=== PATIENT | female | born 1990 | race Hispanic/Latino ===

== ENCOUNTER 2018-03-31 18:46 | Emergency (ER) | payer OTHER, SELFPAY ==
--- NOTE | 2018-03-31 20:02 | EDPHYS ---
Physician Documentation [facility] Name: Allie Naik Age: 27 yrs Sex: Female : 1990 Arrival Date: 03/31/2018 Time: 18:49 Bed 2 Private MD: ED Physician Gilles Munoz HPI: 03/31 21:29 This 27 yrs old Female presents to ER via Ambulatory with complaints of snw Abscess. 21:29 Description: raised, swollen, bleeding easily. Onset: The symptoms/episode snw began/occurred gradually, 2 month(s) ago, and became persistent. Possible cause(s): unknown. Modifying factors: the symptoms are alleviated by nothing, the symptoms are aggravated by squeezing the lesion and expressing the contents. Severity of symptoms: At their worst the symptoms were mild. The patient has not experienced similar symptoms in the past. The patient has not recently seen a physician. 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 - Social history:: Smoking status: Patient/guardian denies using tobacco. - Ebola Screening: : Patient denies travel to an Ebola-affected area in the 21 days before illness onset. ROS: 21:29 Constitutional: Negative for fever, chills, and weight loss, Eyes: Negative for injury, snw pain, redness, and discharge, ENT: Negative for injury, pain, and discharge, Neck: Negative for injury, pain, and swelling, Cardiovascular: Negative for chest pain, palpitations, and edema, Respiratory: Negative for shortness of breath, cough, wheezing, and pleuritic chest pain, Abdomen/GI: Negative for abdominal pain, nausea, vomiting, diarrhea, and constipation, Back: Negative for injury and pain, : Negative for injury, bleeding, discharge, and swelling, MS/Extremity: Negative for injury and deformity, Neuro: Negative for headache, weakness, numbness, tingling, and seizure, Psych: Negative for depression, anxiety, suicide ideation, homicidal ideation, and hallucinations. 21:29 Skin: Positive for lesions, of the left ring finger medially. Exam: 21:29 Constitutional: This is a well developed, well nourished patient who is awake, alert, snw and in no acute distress. Head/Face: Normocephalic, atraumatic. Eyes: Pupils equal round and reactive to light, extra-ocular motions intact. Lids and lashes normal. Conjunctiva and sclera are non-icteric and not injected. Cornea within normal limits. Periorbital areas with no swelling, redness, or edema. ENT: Nares patent. No nasal discharge, no septal abnormalities noted. Tympanic membranes are normal and external auditory canals are clear. Oropharynx with no redness, swelling, or masses, exudates, or evidence of obstruction, uvula midline. Mucous membranes moist. Neck: Trachea midline, no thyromegaly or masses palpated, and no cervical lymphadenopathy. Supple, full range of motion without nuchal rigidity, or vertebral point tenderness. No Meningismus. Chest/axilla: Normal chest wall appearance and motion. Nontender with no deformity. No lesions are appreciated. Cardiovascular: Regular rate and rhythm with a normal S1 and S2. No gallops, murmurs, or rubs. Normal PMI, no JVD. No pulse deficits. Respiratory: Lungs have equal breath sounds bilaterally, clear to auscultation and percussion. No rales, rhonchi or wheezes noted. No increased work of breathing, no retractions or nasal flaring. Abdomen/GI: Soft, non-tender, with normal bowel sounds. No distension or tympany. No guarding or rebound. No evidence of tenderness throughout. Back: No spinal tenderness. No costovertebral tenderness. Full range of motion. MS/ Extremity: Pulses equal, no cyanosis. Neurovascular intact. Full, normal range of motion. Neuro: Awake and alert, GCS 15, oriented to person, place, time, and situation. Cranial nerves II-XII grossly intact. Motor strength 5/5 in all extremities. Sensory grossly intact. Cerebellar exam normal. Normal gait. Psych: Awake, alert, with orientation to person, place and time. Behavior, mood, and affect are within normal limits. 21:29 Skin: Appearance: normal except for affected area, lesion(s), noted, and can be described as pyogenic granuloma - left ring finger medially. Vital Signs: 18:57 BP 129 / 90; Pulse 95; Resp 20; Temp 97.2(TE); Pulse Ox 98% on R/A; Weight 81.65 kg aj1 (R); Height 5 ft. 6 in. (167.64 cm) (R); Pain 0/10; 18:57 Body Mass Index 29.05 (81.65 kg, 167.64 cm) aj1 MDM: 19:43 Patient medically screened. snw 21:32 Data reviewed: vital signs, nurses notes. Data interpreted: Pulse oximetry: on room air snw is 98 %. Counseling: I had a detailed discussion with the patient and/or guardian regarding: the historical points, exam findings, and any diagnostic results supporting the discharge/admit diagnosis, the need for outpatient follow up, to return to the emergency department if symptoms worsen or persist or if there are any questions or concerns that arise at home. Special discussion: Based on the history and exam findings, there is no indication for further emergent testing or inpatient evaluation. I discussed with the patient/guardian the need to see the hand specialist for further evaluation of the symptoms. I discussed with the patient/guardian the need to see the primary care provider for further evaluation of the symptoms. 03/31 19:37 Order name: Urine Dipstick--Ancillary (enter results); Complete Time: 20:21 rg2 03/31 19:37 Order name: Urine --Ancillary (enter results); Complete Time: 20:21 rg2 Administered Medications: No medications were administered Disposition: 21:34 Co-signature as Attending Physician, Gilles Munoz MD I agree with the assessment and tw4 plan of care. Disposition: 03/31/18 20:02 Discharged to Home. Impression: Pyogenic granuloma. - Condition is Stable. - Discharge Instructions: Wound Care. - Medication Reconciliation Form, Thank You Letter, Antibiotic Education, Prescription Opioid Use, Work release form form. - Follow up: Private Physician; When: 2 - 3 days; Reason: Recheck today's complaints, Continuance of care, Re-evaluation by your physician. Signatures: Dispatcher [employer] Iliana Howard RN RN aj1 Ramona Diana FNP-C ELECTRONIC SCANNER OPERATOR-Jessica Saxena RN RN ak1 Gilles Munoz MD MD tw4 Corrections: (The following items were deleted from the chart) 20:40 20:02 03/31/2018 20:02 Discharged to Home. Impression: Pyogenic granuloma. Condition is ak1 Stable. Forms are Medication Reconciliation Form, Thank You Letter, Antibiotic Education, Prescription Opioid Use. Follow up: Private Physician; When: 2 - 3 days; Reason: Recheck today's complaints, Continuance of care, Re-evaluation by your physician. snw
--- NOTE | 2018-03-31 20:02 | ER ---
Nurse's Notes [facility] Name: Allie Naik Age: 27 yrs Sex: Female : 1990 Arrival Date: 03/31/2018 Time: 18:49 Bed 2 Private MD: Diagnosis: Pyogenic granuloma Presentation: 03/31 18:54 Presenting complaint: Patient states: Abscess to left ring finger for the past 2 aj1 months, states that when it opens it bleeds non-stop, and doesn't heal. Patient has not seen her PHCP regarding this complaint. Transition of care: patient was not received from another setting of care. Onset of symptoms was January 2018. Risk Assessment: Do you want to hurt yourself or someone else? Patient reports no desire to harm self or others. Initial Sepsis Screen: Does the patient meet any 2 criteria? HR > 90 bpm. No. Patient's initial sepsis screen is negative. Does the patient have a suspected source of infection? Yes: Skin breakdown/wound. Care prior to arrival: None. 18:54 Method Of Arrival: Ambulatory aj1 18:54 Acuity: ANNA 4 aj1 Triage Assessment: 18:57 General: Appears in no apparent distress. comfortable, Behavior is calm, cooperative, aj1 appropriate for age. Pain: Denies pain. Neuro: Level of Consciousness is awake, alert, obeys commands. Cardiovascular: Patient's skin is warm and dry. Respiratory: Airway is patent Respiratory effort is even, unlabored, Respiratory pattern is regular, symmetrical. 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 - Social history:: Smoking status: Patient/guardian denies using tobacco. - Ebola Screening: : Patient denies travel to an Ebola-affected area in the 21 days before illness onset. Screenin:37 Abuse screen: Denies threats or abuse. Denies injuries from another. Nutritional ak1 screening: No deficits noted. Tuberculosis screening: No symptoms or risk factors identified. Fall Risk None identified. Assessment: 19:36 General: Appears in no apparent distress. Behavior is calm, cooperative. Pain:. ak1 19:37 Pain: Complains of pain in palmar aspect of middle phalanx of left ring finger. Neuro: ak1 No deficits noted. Cardiovascular: No deficits noted. Respiratory: No deficits noted. GI: No signs and/or symptoms were reported involving the gastrointestinal system. : No signs and/or symptoms were reported regarding the genitourinary system. EENT: No signs and/or symptoms were reported regarding the EENT system. Derm: Wound noted palmar aspect of middle phalanx of left ring finger Wound is raised, no bleeding or drainage noted at this time. Musculoskeletal: No signs and/or symptoms reported regarding the musculoskeletal system. Vital Signs: 18:57 BP 129 / 90; Pulse 95; Resp 20; Temp 97.2(TE); Pulse Ox 98% on R/A; Weight 81.65 kg aj1 (R); Height 5 ft. 6 in. (167.64 cm) (R); Pain 0/10; 18:57 Body Mass Index 29.05 (81.65 kg, 167.64 cm) aj ED Course: 18:49 Patient arrived in ED. rg4 18:56 Ramona Diana FNP-C [facility]. snw 18:56 Gilles Munoz MD is Attending Physician. snw 18:56 Triage completed. aj1 18:57 Arm band placed on Patient placed in waiting room, Patient notified of wait time. aj1 19:21 Jessica Singh RN is Primary Nurse. ak1 19:37 Patient has correct armband on for positive identification. Bed in low position. Call ak1 light in reach. Side rails up X 1. Adult w/ patient. 20:39 No provider procedures requiring assistance completed. Patient did not have IV access ak1 during this emergency room visit. Administered Medications: No medications were administered Outcome: 20:02 Discharge ordered by . snw 20:39 Discharged to home ambulatory, with family. ak1 20:39 Condition: good 20:39 Discharge instructions given to patient, Instructed on discharge instructions, follow up and referral plans. Demonstrated understanding of instructions, follow-up care. 20:40 Patient left the ED. ak1 Signatures: Iliana Caro RN RN aj Adalgisa, Ramona, GLOBAL COMPENSATION MANAGER-C GLOBAL COMPENSATION MANAGER-Csnw Krenek, Jessica, RN RN ak1 Andrei, Tracy rg4
[2018-03-31 20:20] LABS: Urine Blood 3+ (NEG); Urine Glucose NEGATIVE (NEG); Urine Protein NEGATIVE (NEG)
== END 2018-03-31 20:40 | disposition home or self-care (01) ==
LOC: ER 18:46
DX: L98.0 Pyogenic granuloma (principal)
CPT/HCPCS: 81003; 81025; 99281